=== PATIENT | female | born 1965 | race Caucasian/White ===

== ENCOUNTER → 2016-11-13 | Outpatient (CLI) | payer BC ==
--- NOTE | 2016-11-13 18:12 | CONS ---
DATE: 11/13/2016 CONSULTATION/NEW PATIENT EVALUATION HISTORY OF PRESENT ILLNESS/SLEEP-WAKE EVALUATION: A 51-year-old lady who has been evaluated in the sleep center for possible obstructive sleep apnea/hypopnea syndrome. SLEEP SCHEDULE: Patient's usual sleep schedule from around 11:00 p.m., 1:00 a.m. until around 07:15. FALLING ASLEEP: She may have problems with falling asleep. No TV in bedroom. DURING SLEEP: She has mild snoring, but according to her daughter, she has episodes of choking and stop breathing when she sleeps. She wakes up from sleep up to 6 times with up to 2 episodes of nocturia. She wakes up with sweating, grinding teeth. Positive history of sleep talking. DURING THE DAY/WAKE STATE: In the morning patient wakes up tired, feels sleepy during the day. [place] Sleepiness Scale increased to 11. She may take naps around 1:00 to 3:00 p.m. She worries about his sleep, has problems with concentration. She works at [employer] 1 night a week, which disrupts her sleep schedule. PAST MEDICAL HISTORY: Positive for hypothyroidism, ovarian and endometrial CA. PAST SURGICAL HISTORY: Elbow surgery after trauma in 2014, total hysterectomy for endometrial and ovarian CA. MEDICATIONS: 1. Levothyroxine. 2. Cytomel. SOCIAL HISTORY: Negative for smoking. Alcohol consumption up to 3 times a week, a glass of wine with dinner. REVIEW OF SYSTEMS: Multiple awakenings from sleep, sleepiness during the day. FAMILY HISTORY: Unavailable. She was adopted. PHYSICAL EXAMINATION: GENERAL: A pleasant patient without any distress. VITAL SIGNS: BP 173/100, HR 62, RR 16. Height 5 feet 7 inches. Weight 183, BMI 28.6. Neck 13 inches in circumference. Temperature 98.2. Oxygen saturation at room air 98%. HEENT: PERRLA, EOMI. Evaluation of oropharynx showed tongue protrudes midline, low position of soft palate. Slight restriction of nasal breathing. . NECK: Supple. No JVD. Thyroid is not palpable. LUNGS: Clear to percussion and to auscultation. Good air exchange. No wheezing or rhonchi. HEART: S1, S2 regular. No murmurs, gallops or rubs. ABDOMEN: Soft and nontender. Bowel sounds are present. No organomegaly appreciated. EXTREMITIES: No clubbing or cyanosis. MANUFACTURING TECHNICIAN: Awake, alert, and oriented x3. Cranial nerves 2 to 7 intact. There is no fasciculation or atrophy noted. No focal deficits observed. IMPRESSION: 1. Witnessed episodes of stopped breathing, low position of soft palate, awakenings from sleep, sleepiness, [place] Sleepiness Scale increased to 11, obstructive sleep apnea/hypopnea syndrome. 2. Positive history of hypnagogical hallucinations, vivid dreams. Sometimes she is seeing dreams when she takes naps. A differential diagnosis should include hypersomnia. 3. History of endometrial and ovarian carcinoma, status post total hysterectomy. 4. Hypertension in the office. 5. Hypothyroidism. 6. Status post was left elbow surgery. PLAN: 1. Polysomnography for evaluation of patient's breathing during sleep. 2. CPAP/BiPAP titration if sleep study confirms obstructive sleep apnea-hypopnea syndrome. 3. Preferable position during sleep on the side. 4. No driving if patient feels any sleepiness. Patient is aware of civil and criminal liability for unsafe driving. 5. I will see patient for follow-up visit to explain results of the testing and following plan. We will consider multiple sleep latency test if sleep study is negative for obstructive sleep apnea/hypopnea syndrome for objective evaluation of patient's symptoms of excessive daytime sleepiness. Thank you very much for referring this patient for consultation. Sincerely, Marcell Howard MD, PhD, FAASM. Diplomat of [place] [employer], Sleep Medicine Board by [place] [employer] [place] [employer] Line Service Attendant of [facility] [place]
== END | disposition home or self-care (01) ==
LOC: SLEEP 14:17
PROVIDERS: ATTEND Internal Medicine
DX: G47.33 Obstructive sleep apnea (adult) (pediatric) (principal); R44.2 Other hallucinations; G47.10 Hypersomnia, unspecified; Z85.43 Personal history of malignant neoplasm of ovary; Z85.42 Personal history of malignant neoplasm of other parts of uterus; I10 Essential (primary) hypertension; E03.9 Hypothyroidism, unspecified; Z98.890 Other specified postprocedural states; Z79.899 Other long term (current) drug therapy

== ENCOUNTER → 2017-04-03 | Outpatient (CLI) | payer BC ==
--- NOTE | 2017-04-03 09:30 | US ---
EXAMINATION TYPE: US abdomen complete DATE OF EXAM: 04/03/2017 COMPARISON: CT chest abdomen and pelvis July 14, 2014 CLINICAL HISTORY: Z85.43 Personal Hx of malignant neoplasm of ovary. Total hysterectomy due to ovaria n and endometrial CA, HTN now, no symptoms EXAM MEASUREMENTS: Liver Length: 18.2 cm Gallbladder Wall: 0.2 cm CBD: 0.4 cm Spleen: 11.5 cm Right Kidney: 10.7 x 5.0 x 4.6 cm Left Kidney: 10.2 x 4.2 x 5.3 cm some bowel gas limits exam Pancreas: wnl Liver: upper limits of normal for size Gallbladder: wnl Evidence for sonographic Carlisle's sign: no CBD: wnl Spleen: Possible 1.4cm splenule at superior pole Right Kidney: wnl Left Kidney: wnl Upper IVC: wnl Abd Aorta: wnl The liver is homogenous. The intrahepatic portion of the IVC and proximal abdominal aorta are within normal limits. There is no evidence of cholelithiasis. Common bile duct is unremarkable. The visu alized portions of the pancreas are homogenous. The spleen is unremarkable. Kidneys are symmetric a nd free of hydronephrosis. No renal lesions are seen on images saved. IMPRESSION: No significant finding identified. Consider surveillance with repeat CT or PET/CT if tumo r markers are rising.
== END | disposition home or self-care (01) ==
LOC: RADUSWWP 08:22
PROVIDERS: ATTEND Internal Medicine
DX: C54.9 Malignant neoplasm of corpus uteri, unspecified (principal); E03.9 Hypothyroidism, unspecified; I10 Essential (primary) hypertension; Z85.43 Personal history of malignant neoplasm of ovary
CPT/HCPCS: 76700; 84439; 84443; 84481

== ENCOUNTER → 2017-05-14 | Outpatient (CLI) | payer BC ==
--- NOTE | 2017-05-14 14:33 | PN ---
PROGRESS NOTE DATE OF SERVICE: 05/14/2017 A 51-year-old lady who has been followed in the Sleep Center to discuss results of her sleep study and recommendations. I discussed results of sleep study with patient in details. Not any abnormalities of respiration have been documented. Total apnea-hypopnea index is only 1.4. No significant oxygen desaturation. Oxygen time in the range below 88% for 0 minutes. Heart rate in the range between 40.9 and 78.2, so it was tendency for bradycardia during the sleep study. Not any significant periodic limb movements have been document. Previously patient indicated that she may have some sleepiness during the day. We also talked about her history of dreaming and sometimes started to see her dreams right away after closing her eyes. But at the present time, she does not feel significantly sleepy, does not fall asleep during the day. [place] Sleepiness Scale is 5, which is normal. Recently, patient was started on treatment with amlodipine for hypertension. MEDICATIONS: Include levothyroxine and Cytomel. PHYSICAL EXAM: Patient in no distress. BP 135/109, HR 102, RR 16, height 5, 7, weight 184, BMI 28.6, oxygen saturation on room air 100%. OROPHARYNX: Moderately low position of soft palate. Neck Supple, no JVD. Thyroid is not palpable. LUNGS Clear to percussion and to auscultation. Good air exchange. No wheezing or rhonchi. HEART S1, S2 regular. No murmurs, gallops, or rubs. ABDOMEN Soft and nontender. Bowel sounds are present. No organomegaly appreciated. EXTREMITIES No clubbing or cyanosis. PLUG WIRER Awake, alert, and oriented X3. Cranial nerves 2 to 7 intact. There is no fasciculation or atrophy. noted. No focal deficits observed. IMPRESSION: 1. Mild to moderate snoring has been documented during the sleep study. 2. No significant respiratory abnormalities during sleep. 3. Hypothyroidism. 4. Hypertension. 5. Questionable history of hypnagogic hallucinations but no significant sleepiness at the present time. PLAN: 1. Sleep hygiene with regular time in bed for 8 hours. 2. No driving if feeling any sleepiness. 3. Preferable position during the sleep on the side. 4. Followup visit in 1 year, if necessary. Sincerely, Marcell Howard MD, PhD, FAASM Diplomat of [place] [employer] [place] [employer] Applications Development Analyst of [facility] [place] MMODL / DORINDAN: [id number] /
== END ==
LOC: SLEEP 13:14
PROVIDERS: ATTEND Internal Medicine
DX: R06.83 Snoring (principal); E03.9 Hypothyroidism, unspecified; I10 Essential (primary) hypertension; Z79.899 Other long term (current) drug therapy

== ENCOUNTER 2017-12-04 12:58 | Emergency (ER) | payer BC ==
[2017-12-04 13:34] VITALS: RESP 20; TEMP 98.2
--- NOTE | 2017-12-04 13:40 | ED ---
General Adult HPI - General Chief complaint: Extremity Injury, Lower Stated complaint: Knee pain Time Seen by Provider: 12/04/17 13:08 Source: patient, RN notes reviewed Mode of arrival: ambulatory Limitations: no limitations - History of Present Illness Initial comments: 52-year-old anxious-appearing female presents the emergency department for a chief complaint of right lower leg pain 2 hours. Patient states that she was walking across the street when she felt a pop in the pain in her calf. Patient states she feels like she has a Mian horse or muscle cramp. Patient states that a couple weeks ago she had a similar occurrence but the pain did not continue. Patient states she sometimes has muscle cramps in her right lower extremity at night that go away. Patient denies any histories of blood clots or control. Patient has a history of ovarian and endometrial cancer 10 years ago. Patient is currently cancer free. Patient denies any shortness of breath or difficulty breathing. Patient denies any chest pain. Patient denies abdominal pain, nausea, or vomiting. Patient states she takes amlodipine for blood pressure medication and that her blood pressure has been high from time to time this past year. She states her doctor thinks it is due to anxiety. She states her blood pressure was fine at her primary care's office when she saw them. Patient states she has no other concerns at this time besides her leg. - Related Data Home Medications Medication Instructions Recorded Confirmed HYDROcodone/APAP 10-325MG [[place] 1 tab PO Q4-6H PRN 10/05/14 10/06/14 10-325] Levothyroxine Sodium [Levoxyl] 112 mcg PO QAM 10/05/14 10/06/14 Liothyronine Sodium [Cytomel] 5 mcg PO QAM 10/05/14 10/06/14 hydrOXYzine PAMOATE [Vistaril] 25 mg PO Q4-6H PRN 10/05/14 10/06/14 Previous Rx's Medication Instructions Recorded HYDROcodone/APAP 10-325MG [[place] 1 - 2 each PO Q6H PRN #60 tab 10/06/14 10] Cyclobenzaprine [Flexeril] 5 mg PO TID #12 tablet 12/04/17 Ibuprofen [Motrin] 600 mg PO Q8HR PRN #20 tab 12/04/17 Allergies Allergy/AdvReac Type Severity Reaction Status Date / Time No Known Allergies Allergy Verified 10/05/14 10:10 Review of Systems ROS Statement: Those systems with pertinent positive or pertinent negative responses have been documented in the HPI. ROS Other: All systems not noted in ROS Statement are negative. Past Medical History Past Medical History: Cancer, Thyroid Disorder Additional Past Medical History / Comment(s): HX ovarian and endometrial CA History of Any Multi-Drug Resistant Organisms: None Reported Past Surgical History: Breast Surgery, Hysterectomy Additional Past Surgical History / Comment(s): BREAST REDUCTION Past Anesthesia/Blood Transfusion Reactions: No Reported Reaction Past Psychological History: No Psychological Hx Reported Smoking Status: Never smoker General Exam Limitations: no limitations Head exam: Present: atraumatic, normocephalic, normal inspection Eye exam: Present: normal appearance, PERRL, EOMI. Absent: scleral icterus, conjunctival injection, periorbital swelling Respiratory exam: Present: normal lung sounds bilaterally. Absent: respiratory distress, wheezes, rales, rhonchi, stridor Cardiovascular Exam: Present: regular rate, normal rhythm, normal heart sounds. Absent: systolic murmur, diastolic murmur, rubs, gallop, clicks Extremities exam: Present: full ROM, tenderness (Patient has some tenderness posteriorly in the right calf. Patient has full range of motion of the right knee, ankle, and foot. Patient has no tenderness in the knee but states it feels "weird". Patient has no tenderness in the ankle or foot.), normal capillary refill (Refill less than 2 seconds in the right lower extremity. Pedal pulse 2+ in the right lower extremity.), calf tenderness (Calf tenderness on palpation Positive Homans sign), other (Patient has pain when trying to walk on her toes and cannot lift her right heel off the floor due to the pain in the calf.). Absent: pedal edema (There is no swelling or erythema noted of the right lower extremity. No pitting edema. Temperature of the right lower extremity feels within normal limits and is equal to the left lower extremity.) , joint swelling Course Vital Signs 12/04/17 12/04/17 13:20 15:09 Temperature 98.2 F Pulse Rate 111 H 85 Respiratory 20 Rate Blood Pressure 170/90 135/86 O2 Sat by Pulse 98 Oximetry Medical Decision Making - Medical Decision Making 52-year-old female with a history of ovarian and endometrial cancer 10 years ago presents to the emergency department for a chief complaint of right lower extremity pain. Patient states she has [address] when she felt a pop and has had a cramping pain in the right lower extremity ever since. Patient states this happened a few weeks ago as well but the pain did continue. Patient has muscle cramps at night sometimes. Patient has no other symptoms at this time including shortness of breath chest pain abdominal pain nausea or vomiting. Patient denies any history of blood clots. Patient has full range of motion of the right lower extremity. Patient has slight tenderness to the calf on palpation. X-ray of the right knee and tib-fib were ordered ultrasound was ordered. X-ray of the knee and tib-fib demonstrate no acute fractures or dislocations and overlying soft tissue appears unremarkable. Ultrasound of the right lower extremity was negative for DVT. Patient was given Motrin in the emergency department which helped somewhat. Patient is driving so cannot be given Flexeril or any thing stronger for pain. Patient will go home with Motrin and Flexeril. She will follow up with primary care in 1-2 days. Patient was also given the number for orthopedics in case she wanted to talk to them about this. She was told she could also follow up with them in addition to PCP. Disposition Clinical Impression: Muscle spasm of calf Disposition: HOME SELF-CARE Condition: Good Instructions: Muscle Spasm (ED) Additional Instructions: Please take Motrin and Flexeril as directed. Please return to the emergency department if you have any worsening symptoms. Otherwise follow-up with your primary care provider in one to 2 days. Prescriptions: Cyclobenzaprine [Flexeril] 5 mg PO TID #12 tablet Ibuprofen [Motrin] 600 mg PO Q8HR PRN #20 tab PRN Reason: Pain Referrals: Mateo Bone MD [Primary Care Provider] - 1-2 days Steve Carlisle MD [STAFF PHYSICIAN] - 1-2 days Time of Disposition: 15:21
--- NOTE | 2017-12-04 14:36 | US ---
EXAMINATION TYPE: US venous doppler duplex LE RT DATE OF EXAM: 12/04/2017 1:33 PM COMPARISON: NONE CLINICAL HISTORY: Pain. SIDE PERFORMED: Right TECHNIQUE: The lower extremity deep venous system is examined utilizing real time linear array sonog michelle with graded compression, doppler sonography and color-flow sonography. VESSELS IMAGED: External Iliac Vein (EIV) Common Femoral Vein Deep Femoral Vein Greater Saphenous Vein * Femoral Vein Popliteal Vein Small Saphenous Vein * Proximal Calf Veins (* superficial vessels) Right Leg: Negative for DVT IMPRESSION: 1. Right lower extremity ultrasound is negative for deep venous thrombosis.
[2017-12-04] MEDS ORDERED: IBUPROFEN 600 MG TAB PO STA (14:56)
--- NOTE | 2017-12-04 14:57 | XR ---
Right leg right knee HISTORY: Leg and knee pain 2 views of the right leg on 4 images, 4 views of the right knee No comparisons Bone mineralization and alignment are maintained. Marginal spurring and joint space loss present in t he medial compartment of the knee. There may be a minimal joint effusion in the suprapatellar locatio n. Spurring also present at the patellofemoral joint. Small plantar calcaneal spur noted. No fracture or dislocation. IMPRESSION: Osteoarthritis.
--- NOTE | 2017-12-04 15:00 | XR ---
EXAMINATION TYPE: XR knee complete RT DATE OF EXAM: 12/04/2017 CLINICAL HISTORY: pain TECHNIQUE: Three views of the right knee are obtained. COMPARISON: None. FINDINGS: There is no acute fracture/dislocation. The tri-compartment joint spaces appear mildly na rrowed. Intercondylar spur formation seen. The overlying soft tissue appears unremarkable. IMPRESSION: There is no acute fracture or dislocation. ICD 10 NO FRACTURE, INITIAL EVALUATION
[2017-12-04 15:10] VITALS: BP 135/86; PULSE 85
== END 2017-12-04 15:26 | disposition home or self-care (01) ==
LOC: EC 12:58
DX: M62.838 Other muscle spasm (principal); E07.9 Disorder of thyroid, unspecified; Z85.43 Personal history of malignant neoplasm of ovary; Z85.42 Personal history of malignant neoplasm of other parts of uterus; Z79.899 Other long term (current) drug therapy; X50.9XXA Other and unspecified overexertion or strenuous movements or postures, initial encounter; Y92.410 Unspecified street and highway as the place of occurrence of the external cause; Y93.01 Activity, walking, marching and hiking
CPT/HCPCS: 99284

== ENCOUNTER → 2018-08-31 | Outpatient (CLI) | payer BC ==
--- NOTE | 2018-09-07 14:42 | MM ---
Reason for exam: screening (asymptomatic). Last mammogram was performed 2 years and 2 months ago. History: Patient is postmenopausal, has history of ovarian cancer at age 44, and has history of endometrial cancer at age 41. Reductions of both breasts. MG 3D Screening Mammo W/Cad Bilateral CC and MLO view(s) were taken. Prior study comparison: June 24, 2016, bilateral MG screening mammo w CAD. November 10, 2013, [facility] DIGITAL RIGHT MAMMOGRAM w/CAD. No suspicious abnormality. Stable left upper outer quadrant focal asymmetry and right superior upper posterior asymmetry at posterior depth back to 2013. No significant new finding since 2013. ASSESSMENT: Benign, BI-RAD 2 RECOMMENDATION: Routine screening mammogram of both breasts in 1 year.
== END | disposition home or self-care (01) ==
LOC: RADMAMWWP 11:55
PROVIDERS: ATTEND Internal Medicine
DX: Z12.31 Encounter for screening mammogram for malignant neoplasm of breast (principal)
CPT/HCPCS: 77063; 77067

== ENCOUNTER → 2019-09-16 | Outpatient (CLI) | payer OTHER ==
--- NOTE | 2019-09-19 09:02 | MM ---
Reason for exam: screening (asymptomatic). Last mammogram was performed 1 year and 1 month ago. History: Patient is postmenopausal, has history of ovarian cancer at age 44, and has history of endometrial cancer at age 41. Reductions of both breasts. Physical Findings: A clinical breast exam by your physician is recommended on an annual basis and results should be correlated with mammographic findings. MG 3D Screening Mammo W/Cad Bilateral CC and MLO view(s) were taken. Prior study comparison: August 31, 2018, bilateral MG 3d screening mammo w/cad. June 24, 2016, bilateral MG screening mammo w CAD. The breast tissue is heterogeneously dense. This may lower the sensitivity of mammography. No significant changes when compared with prior studies. ASSESSMENT: Benign, BI-RAD 2 RECOMMENDATION: Routine screening mammogram of both breasts in 1 year.
== END | disposition home or self-care (01) ==
LOC: RADMAMWWP 07:06
PROVIDERS: ATTEND Internal Medicine
DX: Z12.31 Encounter for screening mammogram for malignant neoplasm of breast (principal)
CPT/HCPCS: 77063; 77067